=== PATIENT | female | born 1955 | race Two or more races ===

== ENCOUNTER 2021-01-09 20:54 | Emergency (ER) | payer OTHER ==
[~2021-01-09] VITALS: Ht 175.3 cm; Wt 74.4 kg
[2021-01-09 20:54] VITALS: BP 163/82
[2021-01-10] MEDS ORDERED: SUMAtriptan SUCCINATE 6 MG/0.5 ML VL SC ONE (00:45)
== END 2021-01-10 01:30 | disposition home or self-care (01) ==
LOC: ER 20:55
DX: R51.9 Headache, unspecified (principal); Z88.1 Allergy status to other antibiotic agents
CPT/HCPCS: 36415; 70450; 87426; 96372